=== PATIENT | female | born 1990 | race American Indian/Alaskan Native ===

== ENCOUNTER 2021-01-16 09:43 | Outpatient (CLI) | payer OTHER ==
--- NOTE | 2021-01-16 10:49 | XRay Report ---
LUMBAR SPINE 3 VIEWS INDICATION / CLINICAL INFORMATION: BACK PAIN. COMPARISON: None available. FINDINGS: VERTEBRAE: No acute fracture. No significant malalignment. DISC SPACES / FACET JOINTS:No significant abnormality. PARASPINAL SOFT TISSUES:No significant abnormality. ADDITIONAL FINDINGS: None. Signer Name: Luis Felipe Lewis MD Signed: 01/16/2021 10:44 AM Workstation Name: [id number]
== END 2021-01-16 09:44 | disposition home or self-care (01) ==
LOC: XRAY 09:43
PROVIDERS: ATTEND Internal Medicine
DX: M54.5 Low back pain (principal)
CPT/HCPCS: 72100